=== PATIENT | male | born 1975 | race Caucasian/White ===

== ENCOUNTER 2017-09-20 12:19 | Emergency (ER) | payer OTHER ==
[2017-09-20 12:19] VITALS: BMI 27.3
[2017-09-20 12:49] VITALS: BP 126/75; PULSE 67; RESP 16; TEMP 97; O2SAT 100
--- NOTE | 2017-09-20 13:52 | ED PDOC ---
Syncope/Near Syncope/Dizziness Time Seen by Provider: 09/20/17 12:27 Chief Complaint (Nursing): Dizziness/Lightheaded Chief Complaint (Provider): Dizziness/lightheaded History Per: Patient History/Exam Limitations: no limitations Onset/Duration Of Symptoms: Hrs (x1) Additional Complaint(s): Sarmad Pa is a 42 year old male presenting to the ED for an evaluation of a 1 hour episode of light-headedness and a burning sensation felt in his chest occurring prior to arrival. Upon ED arrival, the patients symptoms were resolved at this time. The patient admits to cocaine use yesterday morning, none today. He states experiencing a similar episode a year ago and was given a pill, unknown name. He also reports associated anxiousness. The patient denies nausea, vomiting, shortness of breath, or palpitations. PMD: TBD Past Medical History Reviewed: Historical Data, Nursing Documentation, Vital Signs Vital Signs: Last Vital Signs Temp 97 F L 09/20/17 12:45 Pulse 67 09/20/17 12:45 Resp 16 09/20/17 12:45 BP 126/75 09/20/17 12:45 Pulse Ox 100 09/20/17 12:45 - Medical History PMH: No Chronic Diseases - Surgical History Surgical History: No Surg Hx - Family History Family History: States: Unknown Family Hx - Social History Current smoker - smoking cessation education provided: Yes Alcohol: Social Drugs: Cocaine - Immunization History Hx Tetanus Toxoid Vaccination: No Hx Influenza Vaccination: No Hx Pneumococcal Vaccination: No - Allergies Allergies/Adverse Reactions: Allergies Allergy/AdvReac Type Severity Reaction Status Date / Time No Known Allergies Allergy Verified 09/20/17 12:50 Review of Systems ROS Statement: Except As Marked, All Systems Reviewed And Found Negative Cardiovascular: Positive for: Light Headedness, Other (burning senation in chest ). Negative for: Palpitations Respiratory: Negative for: Shortness of Breath Gastrointestinal: Negative for: Nausea, Vomiting Physical Exam - Reviewed Nursing Documentation Reviewed: Yes Vital Signs Reviewed: Yes - Physical Exam Appears: Positive for: Non-toxic, No Acute Distress Head Exam: Positive for: ATRAUMATIC, NORMOCEPHALIC Skin: Positive for: Normal Color, Warm, Dry Eye Exam: Positive for: Normal appearance, EOMI, PERRL ENT: Positive for: Normal ENT Inspection Neck: Positive for: Normal, Painless ROM, Supple Cardiovascular/Chest: Positive for: Regular Rate, Rhythm, Chest Non Tender Respiratory: Positive for: Normal Breath Sounds. Negative for: Respiratory Distress Gastrointestinal/Abdominal: Positive for: Normal Exam, Soft. Negative for: Tenderness Back: Positive for: Normal Inspection Extremity: Positive for: Normal ROM. Negative for: Deformity Neurologic/Psych: Positive for: Alert, Oriented (x3). Negative for: Motor/ Sensory Deficits - Laboratory Results Result Diagrams: 09/20/17 14:00 09/20/17 14:00 - ECG O2 Sat by Pulse Oximetry: 100 (RA) Pulse Ox Interpretation: Normal Medical Decision Making Medical Decision Making: Time: 12:27 Impression: Lightheadedness Plan: * ED EKG * CMP * Troponin I * CBC (with differential) * PTT * Prothrombin Time * Urinalysis * CT head w/o contrast * [RAD] Chest Two views (PA/LAT) * Reevaluation Reassess: 13:57 FINDINGS:CT HEAD WITHOUT CONTRAST HEMORRHAGE: No intracranial hemorrhage. BRAIN: Normal wilder-white matter differentiation and density are appreciated throughout the cerebrum and cerebellum with the brainstem appearing unremarkable as well. There is no mass effect. There is no suspicious extra-axial fluid collection and the midline brain anatomy appears diffusely unremarkable. VENTRICLES: Unremarkable. No hydrocephalus. CALVARIUM: Unremarkable. PARANASAL SINUSES: Incidental note is made of multifocal sinus disease and affecting the right sphenoid and multiple right ethmoid sinuses. MASTOID AIR CELLS: Unremarkable as visualized. No inflammatory changes. OTHER FINDINGS: None. IMPRESSION: Unremarkable unenhanced head CT. Incidental note is made of multifocal sinus disease and affecting the right sphenoid and multiple right ethmoid sinuses. Scribe Attestation: Documented by Gloria Serna, acting as a scribe for Mindy Mckeon MD. Provider Scribe Attestation: All medical record entries made by the Scribe were at my direction and personally dictated by me. I have reviewed the chart and agree that the record accurately reflects my personal performance of the history, physical exam, medical decision making, and the department course for this patient. I have also personally directed, reviewed, and agree with the discharge instructions and disposition. Disposition - Clinical Impression Clinical Impression: Lightheadedness, Atypical chest pain, Cocaine abuse - Disposition Referrals: [facility] [Outside] Disposition: Routine/Home Disposition Time: 17:44 Condition: STABLE Instructions: Lightheadedness (ED), Chest Pain (ED), Cocaine Abuse (ED) Forms: [employer] ([place]) Print Language: [place]
--- NOTE | 2017-09-20 13:59 | CT ---
PROCEDURE: CT HEAD WITHOUT CONTRAST. HISTORY: Dizziness COMPARISON: None available. TECHNIQUE: Axial computed tomography images were obtained through the head/brain without intravenous contrast. Radiation dose: Total exam DLP = 878.76 mGy-cm. This CT exam was performed using one or more of the following dose reduction techniques: Automated exposure control, adjustment of the mA and/or kV according to patient size, and/or use of iterative reconstruction technique. FINDINGS: HEMORRHAGE: No intracranial hemorrhage. BRAIN: Normal wilder-white matter differentiation and density are appreciated throughout the cerebrum and cerebellum with the brainstem appearing unremarkable as well. There is no mass effect. There is no suspicious extra-axial fluid collection and the midline brain anatomy appears diffusely unremarkable. VENTRICLES: Unremarkable. No hydrocephalus. CALVARIUM: Unremarkable. PARANASAL SINUSES: Incidental note is made of multifocal sinus disease and affecting the right sphenoid and multiple right ethmoid sinuses. MASTOID AIR CELLS: Unremarkable as visualized. No inflammatory changes. OTHER FINDINGS: None. IMPRESSION: Unremarkable unenhanced head CT. Incidental note is made of multifocal sinus disease and affecting the right sphenoid and multiple right ethmoid sinuses.
[2017-09-20 14:09] LABS: BASO # 0.1 K/uL (0.0-0.2); BASO % 0.9 % (0.0-2.0); EOS # 0.4 K/uL (0.0-0.7); EOS % 4.8 % (0.0-4.0); HEMATOCRIT 42.1 % (35.0-51.0); LYMPH # 1.8 K/uL (1.0-4.3); LYMPH % 22.7 % (20.0-40.0); MEAN CELL VOLUME 87.3 fl (80.0-94.0); MEAN CORPUSCULAR HEMOGLOBIN 28.9 pg (27.0-31.0); MEAN CORPUSCULAR HGB CONC 33.1 g/dL (33.0-37.0); MEAN PLATELET VOLUME 10.7 fl (7.2-11.7); MONO # 0.4 K/uL (0.0-0.8); MONO % 5.3 % (0.0-10.0); NEUT # 5.3 K/uL (1.8-7.0); NEUT % 66.3 % (50.0-75.0); NRBC % 0.1 % (0.0-0.0); RED CELL DISTRIBUTION WIDTH 12.6 % (11.5-14.5)
[2017-09-20 14:36] LABS: RBC URINE 3 /hpf (0-3); URINE BACTERIA RARE (<OCC); URINE BILIRUBIN NEGATIVE (NEGATIVE); URINE BLOOD NEGATIVE (NEGATIVE); URINE COLOR STRAW (YELLOW); URINE GLUCOSE (UA) NEG (Normal); URINE KETONE NEGATIVE (NEGATIVE); URINE LEUKOCYTE ESTERASE NEG Leu/uL (Negative); URINE PROTEIN NEGATIVE (NEGATIVE); URINE UROBILINOGEN 0.2-1.0 mg/dL (0.2-1.0); WBC URINE 1 /hpf (0-5)
[2017-09-20 14:38] LABS: ALB/GLOB RATIO 1.3 (1.0-2.1); ALKALINE PHOSPHATASE 55 U/L (38-126); ALT/SGPT 41 U/L (21-72); AST/SGOT 44 U/L (17-59); BILIRUBIN,TOTAL 0.7 mg/dl (0.2-1.3); BLOOD UREA NITROGEN 18 mg/dl (9-20); CARBON DIOXIDE 25 mmol/L (22-30); CHLORIDE 104 mmol/L (98-107); GFR AFRICAN-AMERICAN > 60; GLUCOSE,RANDOM 87 mg/dL (75-110); POTASSIUM 3.9 MMOL/L (3.6-5.0); SODIUM 137 mmol/l (132-148); TOTAL PROTEIN 7.7 G/DL (6.3-8.2)
--- NOTE | 2017-09-20 16:10 | RAD ---
HISTORY: Burning in chest COMPARISON: No prior. TECHNIQUE: Chest PA and lateral FINDINGS: LUNGS: No active pulmonary disease. PLEURA: No significant pleural effusion identified. No pneumothorax apparent. CARDIOVASCULAR: Normal. OSSEOUS STRUCTURES: No significant abnormalities. VISUALIZED UPPER ABDOMEN: Normal. OTHER FINDINGS: None. IMPRESSION: No acute cardiopulmonary disease appreciated.
--- NOTE | 2017-09-21 17:01 | CARD ---
APPROVED REPORT EKG Measurement Heart [id number] <Conclusion> Normal sinus rhythm Normal ECG
== END 2017-09-20 17:54 | disposition home or self-care (01) ==
LOC: H.ER 12:19
DX: R42 Dizziness and giddiness (principal); F14.10 Cocaine abuse, uncomplicated; F17.200 Nicotine dependence, unspecified, uncomplicated